=== PATIENT | female | born 1985 | race Caucasian/White ===

== ENCOUNTER 2017-08-31 12:01 | Emergency (ER) | payer BC ==
[~2017-08-31] VITALS: Ht 162.6 cm; Wt 49.9 kg
--- NOTE | 2017-08-31 16:02 | NUR ---
Patient discharged to home in stable conditon. Written and verbal after care instructions given. Patient verbalizes understanding of instructions.
== END 2017-08-31 16:02 | disposition home or self-care (01) ==
LOC: ER 12:13
DX: O99.512 Diseases of the respiratory system complicating pregnancy, second trimester (principal); Z3A.20 20 weeks gestation of pregnancy; J02.9 Acute pharyngitis, unspecified
CPT/HCPCS: 36415; 86403; 87070; A4663